=== PATIENT | male | born 1985 | race African-American/Black ===

== ENCOUNTER 2018-05-16 19:01 | Emergency (ER) | payer MEDICAID ==
[~2018-05-16] VITALS: Ht 175.3 cm; Wt 97.5 kg
[2018-05-16 19:10] VITALS: BP 127/76
[2018-05-16] MEDS ORDERED: NEOMYCIN/POLYMYXIN/BACITRACIN 0.9 GM/1 PKT TP ONE (19:57)
[2018-05-16 20:08] VITALS: BP 125/78
== END 2018-05-16 20:08 | disposition home or self-care (01) ==
LOC: MED 19:01
DX: S91.302A Unspecified open wound, left foot, initial encounter (principal); L08.9 Local infection of the skin and subcutaneous tissue, unspecified; E11.9 Type 2 diabetes mellitus without complications; X58.XXXA Exposure to other specified factors, initial encounter
CPT/HCPCS: 73630; 99283; Q0092

== ENCOUNTER 2019-03-26 22:28 | Emergency (ER) | payer MEDICAID ==
[~2019-03-26] VITALS: Ht 172.7 cm; Wt 95.3 kg
[2019-03-26 22:35] VITALS: BP 122/77
--- NOTE | 2019-03-26 22:35 | NUR ---
TO BED # 06 AMBULATORY
--- NOTE | 2019-03-26 23:02 | NUR ---
Dr. Diaz examining patient.
--- NOTE | 2019-03-26 23:07 | NUR ---
X-Ray at bedside.
[2019-03-26] MEDS ORDERED: NACL 0.9% 500 ML IV SCH (23:18)
[2019-03-26] MEDS ORDERED: ALBUTEROL SULFATE/IPRATROPIU 3 ML SOL IH ONE (23:20)
--- NOTE | 2019-03-26 23:23 | NUR ---
33 Y/O MALE C/O COUGH FOR 3 WEEKS, WEAK , DIZZY, VOMITING, CONSTIPATED FOR 2 WEEKS. PAIN IS A 6/10 GENERALIZED; ACHING PAIN. A/OX4 FOLLOWS COMMANDS; SPEECH IS CLEAR; PRODUCTIVE COUGH NOTED. PATIENT STATES THAT "I HAD BLACK PHLEGM"; BREATH SOUNDS DLEAR/DIMINSHED ALL THROUGHOUT LUNGS; ANTERIOR/POSTERIOR. ERMD MADE AWARE OF STATUS. SIDE RAILXS1. PLACED ON PULSE OX MONITOR. PMH: DENIES RX:DENIES NKDA
--- NOTE | 2019-03-26 23:30 | NUR ---
Respiratory Therapist at bedside for respiratory intervention.
[2019-03-26 23:47] LABS: BASOPHILS % (AUTO) 0.5 % (0.0-2.0); EOSINOPHILS # (AUTO) 0.7 K/uL (0-0.4); EOSINOPHILS % (AUTO) 9.5 % (0.0-4.0); HEMATOCRIT 41.9 % (36-52); HEMOGLOBIN 14.1 g/dL (12.0-18.0); LYMPHOCYTES % (AUTO) 28.5 % (20.5-51.1); MEAN CORPUSCULAR HEMOGLOBIN 29 pg (27-31); MEAN CORPUSCULAR HGB CONC 34 g/dL (33-37); MEAN CORPUSCULAR VOLUME 86.5 fL (80-94); MONOCYTES # (AUTO) 0.6 K/uL (0.8-1.0); MONOCYTES % (AUTO) 8.8 % (1.7-9.3); NEUTROPHILS # (AUTO) 3.7 K/uL (1.8-7.7); NEUTROPHILS % (AUTO) 52.7 % (42.2-75.2); PLATELET COUNT (AUTO) 243 K/uL (140-450); RED BLOOD CELL COUNT(AUTO) 4.84 MIL/uL (4.20-6.10); RED CELL DISTRIBUTION WIDTH 12.9 % (11.6-13.7)
[2019-03-26 23:54] LABS: ANION GAP 8.6 (8-16); CARBON DIOXIDE 35.2 mmol/L (21-32); POTASSIUM 3.8 mmol/L (3.5-5.1)
[2019-03-27] LABS: ALBUMIN 3.4 g/dL (3.4-5.0); TOTAL BILIRUBIN 0.4 mg/dL (0.0-1.0)
--- NOTE | 2019-03-27 01:52 | NUR ---
PT RETURN FROM CT
[2019-03-27 02:53] VITALS: BP 106/69
--- NOTE | 2019-03-27 02:53 | NUR ---
Patient discharged with v/s stable. Written and verbal after care instructions given and explained. Patient alert, oriented and verbalized understanding of instructions. Ambulatory with steady gait. All questions addressed prior to discharge. ID band removed. Patient advised to follow up with PMD. Rx of AUGMENTIN, ALBUTEROL INH, PREDNISONE given. Patient educated on indication of medication including possible reaction and side effects. Opportunity to ask questions provided and answered.
== END 2019-03-27 02:53 | disposition home or self-care (01) ==
LOC: MED 22:28
DX: J18.9 Pneumonia, unspecified organism (principal)
CPT/HCPCS: 36415; 36600; 71045; 71250; 80053; 82803; 83605; 85025; 87040; 87804; 94640; 99284; J7030; J7620

== ENCOUNTER 2019-04-30 01:32 | Emergency (ER) | payer MEDICAID ==
[~2019-04-30] VITALS: Ht 172.7 cm; Wt 99.8 kg
[2019-04-30 01:37] VITALS: BP 116/72
--- NOTE | 2019-04-30 01:48 | NUR ---
ASSESSMENT COMPLETE AT THIS TIME. PATIENT ON PULSE OX MONITORING SATING AT 94% ON RA. BED IN LOW LOCKED POSITON. SIDE RAIL UP ON ONE SIDE. FRIEND AT BEDSIDE.
--- NOTE | 2019-04-30 01:52 | NUR ---
DR MONTEMAYOR AT BEDSIDE.
[2019-04-30] MEDS ORDERED: ALBUTEROL SULFATE/IPRATROPIU 3 ML SOL IH ONE ×2 (01:55→02:20)
--- NOTE | 2019-04-30 01:55 | NUR ---
Note renetta in EDM - 04/30/19 at 0156 by CANDIDO ASSESSMENT COMPLETE AT THIS TIME. PATIENT ON PULSE OX MONITORING SATING AT 94% ON RA. BED IN LOW LOCKED POSITON. SIDE RAIL UP ON ONE SIDE. FRIEND AT BEDSIDE.
--- NOTE | 2019-04-30 02:05 | NUR ---
RT AT BEDSIDE.
[2019-04-30] MEDS ORDERED: predniSONE 20 MG TAB PO ONE (02:20)
--- NOTE | 2019-04-30 02:45 | NUR ---
DR MONTEMAYOR AT BEDSIDE.
--- NOTE | 2019-04-30 03:15 | NUR ---
PATIENT STATES HE IS FEELING MUCH BETTER.
[2019-04-30 03:19] VITALS: BP 110/75
--- NOTE | 2019-04-30 03:21 | NUR ---
Patient discharged with v/s stable. Written and verbal after care instructions given and explained. Patient alert, oriented and verbalized understanding of instructions. Ambulatory with steady gait. All questions addressed prior to discharge. ID band removed. Patient advised to follow up with PMD. Rx of ALBUTEROL, PREDNISONE given. Patient educated on indication of medication including possible reaction and side effects. Opportunity to ask questions provided and answered.
== END 2019-04-30 03:21 | disposition home or self-care (01) ==
LOC: MED 01:32
DX: J45.901 Unspecified asthma with (acute) exacerbation (principal); F17.210 Nicotine dependence, cigarettes, uncomplicated
CPT/HCPCS: 71045; 94640; 99284; J7512; J7620; Q0092

== ENCOUNTER 2020-03-02 17:30 | Emergency (ER) | payer MEDICAID ==
[~2020-03-02] VITALS: Ht 172.7 cm; Wt 106.6 kg
[2020-03-02 17:34] VITALS: BP 133/88
[2020-03-02] MEDS ORDERED: AZITHROMYCIN 250 MG TAB PO ONE (19:25)
[2020-03-02] MEDS ORDERED: cefTRIAXone 250 MG in LIDOCAINE MPF 1% 0.9 ML IM ONE (19:25)
[2020-03-02] MEDS ORDERED: cefTRIAXone 250 MG VIAL ONE (19:34)
[2020-03-02] MEDS ORDERED: LIDOCAINE MPF 1% 5 ML ONE (19:34)
[2020-03-02 19:48] VITALS: BP 133/88
== END 2020-03-02 19:48 | disposition home or self-care (01) ==
LOC: MED 17:30
DX: N39.0 Urinary tract infection, site not specified (principal); A64 Unspecified sexually transmitted disease; R60.0 Localized edema; J45.909 Unspecified asthma, uncomplicated; F17.200 Nicotine dependence, unspecified, uncomplicated
CPT/HCPCS: 96372; 99283; J0696; J2001